=== PATIENT | female | born 1980 | race Caucasian/White ===

== ENCOUNTER → 2018-06-23 | Outpatient (CLI) | payer OTHER | LOC: COL.VAS 13:30 | DX: R60.0 Localized edema (principal); R09.89 Other specified symptoms and signs involving the circulatory and respiratory systems ==

== ENCOUNTER 2018-11-03 11:25 | Emergency (ER) | payer OTHER ==
[~2018-11-03] VITALS: Ht 162.6 cm; Wt 90.7 kg
[2018-11-03 11:34] VITALS: BP 158/70
[2018-11-03 13:06] VITALS: PULSE 72; TEMP 98.2
[2018-11-03] MEDS ORDERED: GLUCOPHAGE500 MG/TAB PO (13:06)
== END 2018-11-03 13:12 | disposition home or self-care (01) ==
LOC: COL.ER 11:25
DX: T50.905A Adverse effect of unspecified drugs, medicaments and biological substances, initial encounter (principal); E11.9 Type 2 diabetes mellitus without complications; D64.9 Anemia, unspecified; Z79.84 Long term (current) use of oral hypoglycemic drugs
CPT/HCPCS: J1100; J1200